=== PATIENT | female | born 1960 | race Caucasian/White ===

== ENCOUNTER 2017-03-31 12:03 | Emergency (ER) | payer OTHER ==
[2017-03-31] MEDS: IBUPROFEN 800 MG TAB PO (16:54)
[2017-03-31] MEDS: HYDROCODONE/APAP (10/325) TAB PO (17:30)
[2017-03-31 17:36] LABS: TROPONIN-I < 0.012 ng/ml (0.00-0.12)
== END 2017-03-31 18:25 | disposition home or self-care (01) ==
LOC: E/R 12:03
DX: S29.011A Strain of muscle and tendon of front wall of thorax, initial encounter (principal); R07.9 Chest pain, unspecified; X58.XXXA Exposure to other specified factors, initial encounter; Y92.9 Unspecified place or not applicable; Z79.84 Long term (current) use of oral hypoglycemic drugs; Z79.82 Long term (current) use of aspirin
CPT/HCPCS: 71045; 84484; 93005; 99285-25